=== PATIENT | female | born 1980 | race Caucasian/White ===

== ENCOUNTER 2022-08-26 22:55 | Emergency (ER) | payer MEDICARE, MEDICAID ==
[~2022-08-26] VITALS: Ht 160 cm; Wt 90.0 kg
[2022-08-26 23:17] VITALS: BP 189/136
[2022-08-27] MEDS ORDERED: acetaminophen 325mg tablet PO ONE (01:50)
== END 2022-08-27 02:09 | disposition home or self-care (01) ==
LOC: ER 22:56
DX: M25.532 Pain in left wrist (principal); Z56.0 Unemployment, unspecified; W19.XXXA Unspecified fall, initial encounter; Y93.89 Activity, other specified; Y92.89 Other specified places as the place of occurrence of the external cause; Y99.8 Other external cause status
CPT/HCPCS: 29125; 73110; 99284; A4565; A6446; A6449

== ENCOUNTER 2022-08-28 11:44 | Emergency (ER) | payer MEDICARE, MEDICAID ==
[~2022-08-28] VITALS: Ht 160 cm; Wt 93.0 kg
[2022-08-28 11:50] VITALS: BP 155/99
[2022-08-28] MEDS ORDERED: ondansetron 4mg rapidly disintigrating tab PO ONE (13:10)
[2022-08-28] MEDS ORDERED: HYDROcodone/acetaminophen 5mg/325mg tablet PO ONE (13:10)
== END 2022-08-28 13:27 | disposition home or self-care (01) ==
LOC: ER 11:45
DX: S52.502D Unspecified fracture of the lower end of left radius, subsequent encounter for closed fracture with routine healing (principal); Z56.0 Unemployment, unspecified; X58.XXXD Exposure to other specified factors, subsequent encounter
CPT/HCPCS: 29125; 99283